=== PATIENT | male | born 1965 | race Caucasian/White ===

== ENCOUNTER 2020-02-21 12:49 | Outpatient (CLI) | payer BC ==
--- NOTE | 2020-02-21 13:58 | ULT ---
Ultrasound renal Doppler duplex: 02/21/2020 HISTORY: Z94.0 chronic renal failure status post renal transplant. Evaluate renal allograft. TECHNIQUE: Grayscale, color-flow, and spectral analysis. FINDINGS: The bilateral [place] kidneys are small, and diffusely very hyperechoic. Urinary bladder appears normal when full. Prevoid volume: 140 mL. Postvoid volume: 55 mL. The transplanted kidney in the left side of the pelvic cavity measures approximately 8.6 x 4.6 x 4.5 cm. Renal parenchymal echogenicity is heterogeneous. No hydronephrosis. Highest peak systolic velocity: Renal artery: 135 cm/s Iliac artery: 85 cm/s. Resistive index: 0.69 IMPRESSION: 1.) Status post renal transplant 2) resistive index within normal limits.
== END 2020-02-21 12:50 | disposition home or self-care (01) ==
LOC: SCSULT 12:49
PROVIDERS: ATTEND Internal Medicine Nephrology
DX: Z48.22 Encounter for aftercare following kidney transplant (principal)
CPT/HCPCS: 76775